=== PATIENT | female | born 1985 | race Caucasian/White ===

== ENCOUNTER 2018-12-08 17:00 | Inpatient (IN) | payer BC ==
[2018-12-08] MEDS: ELECTROLYTE-148 SOLN 1,000 ML IV SCH ×2 (17:30→22:00)
[2018-12-08 18:10] VITALS: BMI 26.1
--- NOTE | 2018-12-08 20:02 | HP ---
Past Medical History - Primary Care Physician PCP:: Fern Collazo - Admission Chief Complaint: 33yo P1 @ 40.2 wks c/o LOF, clear today @ 4pm, and some irregular contructions, no VB, + FM History of Present Illness: 1. Prior c/section 2. NIPT - 46XX 3. TDap 10/01/18 4. GBS neg 5. RNI for immunization PP History Source: Patient, Medical Record Limitations to Obtaining History: No Limitations - Past Medical History Pulmonary: Yes: Other (PPD positive, CXR neg, Quantiferon neg) ...: 3 ...Para: 1 ...Term: 1 (2014 c/section, 9lb) ...: 0 ...Spon : 0 ...Induced : 1 ...Multiple Gestation: 0 ...LMP: 03/02/18 ... Weeks Gestation by Dates: 40.1 ...EDC by Dates: 12/07/18 ...EDC by Sono: 12/06/18 Psych: Yes: Depression () - Past Surgical History Past Surgical History: Yes: Appendectomy, Breast Biopsy, Hx Myomectomy: No Hx Transabdominal Cerclage: No Additional Surgical History: Breast augmentation. Laparoscopy - Smoking History Smoking history: Never smoked Have you smoked in the past 12 months: No - Alcohol/Substance Use Hx Alcohol Use: No History of Substance Use: reports: None - Social History ADL: Independent History of Recent Travel: No Home Medications - Allergies Allergies/Adverse Reactions: Allergies Allergy/AdvReac Type Severity Reaction Status Date / Time No Known Allergies Allergy Verified 12/08/18 17:49 - Home Medications Home Medications: Ambulatory Orders Vits96/Iron Fum/Folic [ Tablet] 1 each PO DAILY 12/08/18 Family Disease History - Family Disease History Family Disease History: CA: Father (lung) Review of Systems - Review of Systems Constitutional: reports: No Symptoms Eyes: reports: No Symptoms HENT: reports: No Symptoms Neck: reports: No Symptoms Cardiovascular: reports: No Symptoms Respiratory: reports: No Symptoms Gastrointestinal: reports: No Symptoms, Other (clear leackage of fluid) Breasts: reports: No Symptoms Reported Musculoskeletal: reports: No Symptoms Integumentary: reports: No Symptoms Neurological: reports: No Symptoms Endocrine: reports: No Symptoms Hematology/Lymphatic: reports: No Symptoms Psychiatric: reports: No Symptoms Physical Exam - Maternity Vital Signs: Vital Signs Temperature 98.2 F 12/08/18 17:30 Pulse Rate 81 12/08/18 19:15 Respiratory Rate 18 12/08/18 19:15 Blood Pressure 95/70 12/08/18 19:15 O2 Sat by Pulse Oximetry (%) Constitutional: Yes: Well Nourished, No Distress, Calm Eyes: Yes: WNL, Conjunctiva Clear, EOM Intact HENT: Yes: WNL, Atraumatic, Normocephalic Neck: Yes: WNL, Supple, Trachea Midline Cardiovascular: Yes: WNL, Regular Rate and Rhythm Lungs: Clear to auscultation Breast(s): Yes: WNL - Abdominal Exam/OB Fundal Height: 40 Number of Fetuses: Single Presentation: Vertex Contractions: Yes Regularity: Regular Intensity: Mild/Mod Monitor Mode: External Heart Rate (range): 140 Heart Rate Location: Midline Category: I Accelerations: Uniform Decelerations: None - Vaginal Exam/OB Vaginal Bleediing: No Speculum Exam: No Dilatation (cm): 1 Effacement (%): 50 Amniotic Membrane Status: Ruptured Nitrazine Test: Positive Amniotic Fluid: Yes: Clear Presentation: Vertex/Position Station: -3 - Physical Exam Musculoskeletal: Yes: WNL Extremities: Yes: WNL Edema: No Integumentary: Yes: WNL Deep Tendon Reflex Grade: Normal +2 ...Motor Strength: WNL Psychiatric: Yes: WNL, Alert - Labs Lab Results: Apos/HBsAgneg/RPR - nr/HIV neg/RNI/ Assessment/Plan 33yo P1 @ 40.1wks with PROM, clear fluid, prior c/section, in early labor Admit to L&D, NPO, IVF, Labs Desires to attempt DEVONTE understands risk of uterine rupture 1% Chooses Epidural for pain management Augment constructions with Pitocin Patient desires to proceed with c/section by 8am if no significant progress of labor MF status reassuring
[2018-12-08] MEDS ORDERED: AMPICILLIN SODIUM 2 GM VIAL IVPB STA (20:15)
[2018-12-08] MEDS ORDERED: AMPICILLIN SODIUM 2 GM VIAL ONE (20:19)
[2018-12-08] MEDS ORDERED: FENTANYL/BUPIVACAINE/NS/PF - PCEA - 50 ML DISP.SYRIN EP ONE (21:12)
[2018-12-08] MEDS ORDERED: NALOXONE HCL 0.4 MG/ML VIAL IVPUSH PRN (22:23)
[2018-12-08] MEDS ORDERED: FENTANYL/BUPIVACAINE/NS/PF - PCEA - 50 ML DISP.SYRIN EP SCH (22:30)
[2018-12-09] MEDS ORDERED: AMPICILLIN SODIUM 1 GM VIAL ONE ×2 (00:07→04:00)
[2018-12-09] MEDS: AMPICILLIN SODIUM 1 GM VIAL IVPB SCH ×3 (00:15→08:15)
[2018-12-09] MEDS ORDERED: NALOXONE HCL 0.4 MG/ML VIAL IVPUSH PRN (01:29)
[2018-12-09] MEDS ORDERED: FENTANYL/BUPIVACAINE/NS/PF - PCEA - 50 ML DISP.SYRIN EP SCH ×2 (01:30)
[2018-12-09] MEDS ORDERED: ELECTROLYTE-148 SOLN 500 ML IV ONE (01:37)
--- NOTE | 2018-12-09 01:46 | PN ---
Progress Note (short form) - Note Progress Note: Called to the floor for low BP. 85/ 45-55 Pat seen and examined. Repeat BP, 85-90/50-55. Pat comfartable with no contraction pain. C/o tiredness and headache. A/P: Hypotension. Stopped epidural. Treated with one dose phenylephrine. Will restart when SBP>95 consistently. Decrease the basal rate to 8 ml/hr.
[2018-12-09] MEDS: ELECTROLYTE-148 SOLN 1,000 ML IV SCH ×2 (02:35→03:55)
[2018-12-09] MEDS ORDERED: FENTANYL/BUPIVACAINE/NS/PF - PCEA - 50 ML DISP.SYRIN EP ONE (05:10)
[2018-12-09] MEDS ORDERED: LIDO 2%/EPI 1:200000 PRESRVFRE (20 ML SDVIAL) ONE (08:17)
[2018-12-09] MEDS ORDERED: OXYTOCIN 20 UNITS in 0.9% NS 40 UNIT/2,000 ML INFUS.BAG IV ONE (08:18)
[2018-12-09] MEDS ORDERED: PHENYLEPHRINE HCL 10 MG/1 ML SINGLE DOSE VIAL ONE (08:21)
[2018-12-09] MEDS ORDERED: CITRIC ACID/SODIUM CITRATE 30 ML UNIT-DOSE CUP PO ONE (08:25)
--- NOTE | 2018-12-09 08:25 | PN ---
Ante-Partal Exam - Subjective Subjective: No complaints. Pt has contractions but does not feel them. Epidural is in place. Vital Signs: Vital Signs Temperature 98.2 F 12/09/18 06:00 Pulse Rate 89 12/09/18 07:30 Respiratory Rate 17 12/09/18 07:30 Blood Pressure 102/69 12/09/18 07:30 O2 Sat by Pulse Oximetry (%) 100 12/09/18 07:30 Bleeding: No Headache: No Visual changes: No Right upper quadrant pain: No Pain (scale 1-10): 0 - Contractions Contractions: Yes Regularity: Irregular Intensity: Unaware Monitor Mode: External - Exam during Labor Heart Rate: 120 Variability: Moderate Heart Rate Location: Midline Category: I Monitor Accelerations: Present Monitor Decelerations: None Exam: Vaginal Dilatation (cm): 3 Effacement (%): 80 Amniotic Membrane Status: Leaking Nitrazine Test: Positive Amniotic Fluid: Clear Presentation: Vertex Station: -2 - Intrapartum Hemorrhage Risk Medium Risk Factors: None High Risk Factors: None Risk Score: 0 Risk Level: Low Risk - Assessment/Plan Assessment/Plan: Pt is in latent labor. The fetus with Category I tracing. We discussed management and delivery plans. The pt requested to proceed with a repeat C/S. We discussed the risks and benefits of C/S at length, including but not limited to scarring, pain, bleeding, infection, injury to underlying organs and structures, need for additional surgery to repair/treat any problems or complications, complications/injuries, etc. The pt verbalized her understanding and requested to proceed with surgery. The pt is aware that all surgeries have risks and no guarantees can be provided.
[2018-12-09 08:48] LABS: POC NITRAZINE POS
[2018-12-09] MEDS ORDERED: MIDAZOLAM HCL 2 MG/2 ML SINGLE DOSE VIAL ONE (09:12)
[2018-12-09] MEDS ORDERED: ceFAZolin SODIUM 1 GM VIAL ONE ×2 (09:50)
[2018-12-09] MEDS ORDERED: WITCH HAZEL 50% (TUCKS) 40 PAD/JAR PAD TP PRN (09:56)
[2018-12-09] MEDS ORDERED: IBUPROFEN 600 MG TABLET (FP) PO PRN (09:56)
[2018-12-09] MEDS ORDERED: METHYLERGONOVINE MALEATE 0.2 MG/1 ML AMP IM PRN (09:56)
[2018-12-09] MEDS ORDERED: oxyCODONE HCL 5 MG TABLET PO PRN (09:56)
[2018-12-09] MEDS ORDERED: BENZOCAINE 20% 57 GM BOTTLE TP PRN (09:56)
[2018-12-09] MEDS ORDERED: SENNOSIDES/DOCUSATE COMBO (SENNA PLUS) TABLET (UD) PO PRN (09:56)
[2018-12-09] MEDS ORDERED: PRENATAL VITAMINS W/ FOLIC ACID TABLET (FP) PO SCH (10:00)
--- NOTE | 2018-12-09 10:04 | OP ---
Operative Note - Note: Operative Date: 12/09/18 Pre-Operative Diagnosis: Post term at EGA 40w 3d. Prior C/S. Failed Operation: Repeat LT C/S Findings: Live baby girl in vtx presentation. No mecoinium. 9-9. Wt 8lb 12 oz. Normal ut/tubes/ovaries Post-Operative Diagnosis: Same as Pre-op Surgeon: Emile Rubalcava Loan Examiner: Fern Collazo Anesthesiologist/WEB CONTENT PRODUCER: Jeff Daugherty Anesthesia: Epidural Specimens Removed: Placenta Estimated Blood Loss (mls): 500 Drains & Tubes with Location: Barry cath Drains, Volume Out (mls): 200 Blood Volume Replaced (mls): 0 Fluid Volume Replaced (mls): 2,000 Operative Report Dictated: Yes
[2018-12-09] MEDS ORDERED: OXYTOCIN 20 UNITS in 0.9% NS 20 UNIT/1,000 ML INFUS.BAG IV ONE (11:14)
[2018-12-09] MEDS ORDERED: IBUPROFEN 800 MG/8 ML IJ IVPB ONE (11:15)
[2018-12-09] MEDS: IBUPROFEN 800 MG/8 ML IJ IVPB PRN ×2 (11:35→23:47)
[2018-12-09] MEDS: OXYTOCIN 20 UNITS in 0.9% NS 20 UNIT/1,000 ML INFUS.BAG IV SCH ×2 (11:39→21:01)
[2018-12-09] MEDS ORDERED: ENOXAPARIN NA (PORCINE) 40 MG/0.4 ML DISP.SYRIN SQ SCH (15:30)
[2018-12-09] MEDS ORDERED: ONDANSETRON 4 MG/2 ML VIAL IVPUSH PRN (17:09)
--- NOTE | 2018-12-09 21:31 | OP ---
DATE OF OPERATION: 12/09/2018 PREOPERATIVE DIAGNOSIS: Post-term at estimated gestational age of 40 weeks and 3 days, previous section, failed trial of labor after section. POSTOPERATIVE DIAGNOSIS: Post-term at estimated gestational age of 40 weeks and 3 days, previous section, failed trial of labor after section. PROCEDURE: Repeat low transverse section. SURGEON: Emile Rubalcava MD TOPOGRAPHIC COMPUTATOR: Fern Collazo MD ANESTHESIOLOGIST: Jeff Daugherty MD ANESTHESIA: Epidural. COMPLICATIONS: None. PATHOLOGY: Placenta. ESTIMATED BLOOD LOSS: 500 mL. URINE OUTPUT: Clear urine 200 mL at the end of the procedure. INTRAVENOUS FLUIDS: 2000 mL. FINDINGS: Live baby girl in vertex presentation. No meconium noted in amniotic fluids. A nuchal cord was wrapped around once and was released without difficulties. scores were 9 and 9. Baby's weight was 8 pounds 12 ounces. Normal uterus, fallopian tubes, and ovaries were noted. DESCRIPTION OF PROCEDURE: The patient was met preoperatively. Risks, benefits, and alternatives of surgery were discussed in details. All questions were answered. The patient requested to proceed with the surgery. The patient was then brought to the OR with the IV running. She was placed on the surgical table in the supine position. The level of epidural anesthesia was found to be adequate. The patient was then prepped and draped in the usual sterile fashion. A Barry catheter was left to drain to gravity. A Pfannenstiel skin incision was made along the prior scar. The incision was taken down to the level of fascia. The fascia was incised in the midline. The incision was extended bilaterally using Shah scissors. The fascia was then dissected away from the rectus muscles superiorly and inferiorly using sharp dissection. The rectus muscles were in the midline. The peritoneum was identified and entered sharply. The peritoneal incision was extended superiorly and inferiorly. The bladder peritoneum was dissected away from the lower uterine segment using sharp dissection. The bladder was reflected downwards with the Belfour retractor. The lower uterine segment was incised transversely with a knife. The incision was extended bilaterally using bandage scissors. The baby was delivered from vertex presentation without complications. The baby was crying spontaneously. The umbilical cord was clamped and cut. The baby was handed to the awaiting spot cleaner. The placenta was then delivered manually and without complications. The uterus was cleared of all clots and debris using moist laps. The uterine incision was repaired using a 0 Biosyn suture with a running locking stitch. Good hemostasis was noted. The uterine incision was then imbricated using a secondary layer of closure with a 0 Biosyn suture. Once again, good hemostasis was noted. The bladder peritoneum was then approximated using a 0 Biosyn suture with good hemostasis and approximation. The operative site was irrigated using copious amounts of normal saline. Once the saline was aspirated, good hemostasis was confirmed. The parietal peritoneum was approximated using a 2-0 chromic suture. The rectus muscles were approximated in the midline using several interrupted 2-0 chromic sutures. The fascia was closed using a 0 Vicryl suture with a running stitch. Good hemostasis was noted. The subcutaneous adipose tissues and Bang fascia were approximated using several interrupted 0 Vicryl sutures. The skin was closed using a subcuticular stitch with a 4-0 Biosyn suture. Sponge, lap, and instrument counts were correct. The patient tolerated the procedure well. She was transferred to recovery room in stable condition and awake. Christopher [id number]
[2018-12-10] MEDS: PROMETHAZINE HCL 25 MG/1 ML VIAL IVPUSH PRN ×2 (00:56→06:40)
[2018-12-10] MEDS: OXYTOCIN 20 UNITS in 0.9% NS 20 UNIT/1,000 ML INFUS.BAG IV SCH (06:08)
[2018-12-10] MEDS: ACETAMINOPHEN 325 MG TABLET (FP) PO PRN ×3 (06:39→17:34)
[2018-12-10] MEDS: SIMETHICONE 80 MG TAB.CHEW (FP) PO PRN ×3 (06:39→17:37)
[2018-12-10] MEDS: IBUPROFEN 600 MG TABLET (FP) PO PRN ×3 (06:40→17:37)
[2018-12-10 07:14] LABS: BASO % 0.4 % (0-2.0); EOS % 0.4 % (0-4.5); HEMATOCRIT 27.7 % (32.4-45.2); HEMOGLOBIN 9.2 GM/dL (10.7-15.3); LYMPH % 15.8 % (8-40); MCH 27.7 pg (25.7-33.7); MONO % 8.2 % (3.8-10.2); NEUT % 75.2 % (42.8-82.8); RDW 16.3 % (11.6-15.6); WHITE BLOOD COUNT 7.9 K/mm3 (4.0-10.0)
[2018-12-10 08:08] LABS: PLATELET COUNT 108 K/MM3 (134-434)
--- NOTE | 2018-12-10 08:33 | PN ---
Post Progress Note - Subjective Subjective: POD#1 Patient without acute complaints. Reports tolerating oral intake without nausea or vomiting. Ambulating without dizziness. Denies fevers or chills. Pain well controlled with oral pain medication. Pumping/breast feeding without issue. No flatus, no BM Post Day: 1 Type of Delivery: Repeat C/S Vital Signs: Vital Signs Temperature 97.6 F 12/10/18 08:07 Pulse Rate 66 12/10/18 08:07 Respiratory Rate 18 12/10/18 08:07 Blood Pressure 89/64 L 12/10/18 08:07 O2 Sat by Pulse Oximetry (%) 99 12/09/18 22:00 Breast Exam: Yes: Soft Uterus: Yes: Fundus Firm, Fundus below umbilicus, Non-tender Incision: Yes: Dressing dry and intact Abdomen/GI: Yes: Abdomen soft Lochia: Yes: Rubra Lochia, amount: Small Extremities: Yes: Calves non-tender Perineum: Yes: Intact Activity: Other (still in bed) - Labs Labs: CBC WBC 7.9 K/mm3 (4.0-10.0) 12/10/18 06:52 RBC 3.30 M/mm3 (3.60-5.2) L 12/10/18 06:52 Hgb 9.2 GM/dL (10.7-15.3) L 12/10/18 06:52 Hct 27.7 % (32.4-45.2) L D 12/10/18 06:52 MCV 84.0 fl (80-96) 12/10/18 06:52 MCH 27.7 pg (25.7-33.7) 12/10/18 06:52 MCHC 33.0 g/dl (32.0-36.0) 12/10/18 06:52 RDW 16.3 % (11.6-15.6) H 12/10/18 06:52 Plt Count 108 K/MM3 (134-434) L D 12/10/18 06:52 MPV 9.0 fl (7.5-11.1) 12/10/18 06:52 Absolute Neuts (auto) 6.0 K/mm3 (1.5-8.0) 12/10/18 06:52 Neutrophils % 75.2 % (42.8-82.8) 12/10/18 06:52 Lymphocytes % 15.8 % (8-40) 12/10/18 06:52 Monocytes % 8.2 % (3.8-10.2) 12/10/18 06:52 Eosinophils % 0.4 % (0-4.5) 12/10/18 06:52 Basophils % 0.4 % (0-2.0) 12/10/18 06:52 Nucleated RBC % 0 % (0-0) 12/10/18 06:52 Assessment/Plan 33yo P2 s/p repeat LT C/S, doing well stable, afebrile. The pt is asymptomatic for s/sxs of anemia. care instructions reviewed. Continue routine postop care. Ambulation encouraged.
[2018-12-10] MEDS: ENOXAPARIN NA (PORCINE) 40 MG/0.4 ML DISP.SYRIN SQ SCH (09:38)
[2018-12-10] MEDS: PRENATAL VITAMINS W/ FOLIC ACID TABLET (FP) PO SCH (09:38)
[2018-12-10] MEDS ORDERED: BISACODYL 10 MG SUPP.RECT RC PRN (09:57)
--- NOTE | 2018-12-10 10:43 | PN ---
Progress Note (short form) - Note Progress Note: Anesthesia pain Pt seen and exmained S:Alert and awake, comfortable O: Vital Signs Temperature 97.6 F 12/10/18 08:07 Pulse Rate 66 12/10/18 08:07 Respiratory Rate 18 12/10/18 08:07 Blood Pressure 89/64 L 12/10/18 08:07 O2 Sat by Pulse Oximetry (%) 99 12/09/18 22:00 CBC, BMP 12/10/18 06:52 A/P: s/p c section Doing well post op Continue current care Jeff Daugherty MD
[2018-12-10] MEDS ORDERED: diphenhydrAMINE HCL 12.5 MG/5 ML UNIT-DOSE CUPS PO PRN (14:45)
[2018-12-10] MEDS: oxyCODONE HCL 5 MG TABLET PO PRN (20:27)
[2018-12-11] MEDS: SIMETHICONE 80 MG TAB.CHEW (FP) PO PRN ×3 (01:06→21:13)
[2018-12-11] MEDS: oxyCODONE HCL 5 MG TABLET PO PRN ×2 (01:07→22:13)
[2018-12-11] MEDS: IBUPROFEN 600 MG TABLET (FP) PO PRN ×3 (01:08→15:56)
[2018-12-11] MEDS: ENOXAPARIN NA (PORCINE) 40 MG/0.4 ML DISP.SYRIN SQ SCH (09:04)
[2018-12-11] MEDS: PRENATAL VITAMINS W/ FOLIC ACID TABLET (FP) PO SCH (09:04)
[2018-12-11] MEDS: ACETAMINOPHEN 325 MG TABLET (FP) PO PRN ×3 (09:05→22:13)
--- NOTE | 2018-12-11 09:10 | PN ---
Post Progress Note - Subjective Subjective: Patient without acute complaints. Reports tolerating oral intake without nausea or vomiting. Ambulating without dizziness. Denies fevers or chills. Pain well controlled with oral pain medication. without difficulty. Passing flatus. Post Day: 1 Type of Delivery: Repeat C/S Vital Signs: Vital Signs Temperature 97.6 F 12/10/18 20:56 Pulse Rate 71 12/10/18 20:56 Respiratory Rate 20 12/10/18 20:56 Blood Pressure 105/68 12/10/18 20:56 O2 Sat by Pulse Oximetry (%) 99 12/09/18 22:00 Breast Exam: Yes: Soft Uterus: Yes: Fundus Firm, Fundus below umbilicus Incision: Yes: Sutures intact. No: Redness, Oozing Abdomen/GI: Yes: Abdomen soft, Tender (mild incisional ), Passing flatus, Tolerating PO. No: Abdominal Distention Lochia: Yes: Rubra Lochia, amount: Small Extremities: Yes: Calves non-tender, Edema (trace) Activity: Ambulating - Labs Labs: CBC WBC 7.9 K/mm3 (4.0-10.0) 12/10/18 06:52 RBC 3.30 M/mm3 (3.60-5.2) L 12/10/18 06:52 Hgb 9.2 GM/dL (10.7-15.3) L 12/10/18 06:52 Hct 27.7 % (32.4-45.2) L D 12/10/18 06:52 MCV 84.0 fl (80-96) 12/10/18 06:52 MCH 27.7 pg (25.7-33.7) 12/10/18 06:52 MCHC 33.0 g/dl (32.0-36.0) 12/10/18 06:52 RDW 16.3 % (11.6-15.6) H 12/10/18 06:52 Plt Count 108 K/MM3 (134-434) L D 12/10/18 06:52 MPV 9.0 fl (7.5-11.1) 12/10/18 06:52 Absolute Neuts (auto) 6.0 K/mm3 (1.5-8.0) 12/10/18 06:52 Neutrophils % 75.2 % (42.8-82.8) 12/10/18 06:52 Lymphocytes % 15.8 % (8-40) 12/10/18 06:52 Monocytes % 8.2 % (3.8-10.2) 12/10/18 06:52 Eosinophils % 0.4 % (0-4.5) 12/10/18 06:52 Basophils % 0.4 % (0-2.0) 12/10/18 06:52 Nucleated RBC % 0 % (0-0) 12/10/18 06:52 Assessment/Plan 33 yo POD # 2 s/p CD, afebrile, vital signs stable, mild asymptomatic anemia 1. Continue routine postoperative care. 2. Encourage ambulation and incentive spirometer use 3. Continue oral pain medication 4. Anticipate discharge home postoperative day #3 or #4
[2018-12-11] MEDS ORDERED: DIPHENHYDRAMINE HCL 25 MG/10 ML CUP PO PRN (13:37)
--- NOTE | 2018-12-11 19:18 | DS ---
Physical Exam-CASSANDRA CONSULTANT Vital Signs: Vital Signs Temperature 98.3 F 12/11/18 10:00 Pulse Rate 69 12/11/18 10:00 Respiratory Rate 20 12/11/18 10:00 Blood Pressure 100/56 L 12/11/18 10:00 O2 Sat by Pulse Oximetry (%) 99 12/09/18 22:00 Constitutional: Yes: Well Nourished, No Distress, Calm Eyes: Yes: WNL, Conjunctiva Clear HENT: Yes: WNL, Atraumatic, Normocephalic Neck: Yes: WNL, Supple, Trachea Midline Cardiovascular: Yes: WNL, Regular Rate and Rhythm Respiratory: Yes: WNL, Regular, CTA Bilaterally Gastrointestinal: Yes: WNL, Normal Bowel Sounds, Soft ...Rectal Exam: Yes: Deferred Renal/: Yes: WNL Internal Exam Deferred: Yes ....Post : Yes: Uterus firm, Uterus non-tender, Slight lochia rubra Breast(s): Yes: WNL Musculoskeletal: Yes: WNL Extremities: Yes: WNL Edema: Yes Edema: LLE: Trace, RLE: Trace Integumentary: Yes: WNL Wound/Incision: Yes: Clean/Dry, Well Approximated, Sutures Intact, Steri Strips , Open to air Neurological: Yes: WNL, Alert, Oriented ...Motor Strength: WNL Psychiatric: Yes: WNL, Alert, Oriented Labs: CBC, BMP 12/10/18 06:52 Delivery - Delivery Section: Repeat, Low Flap Transverse Type of Anesthesia: Epidural Episiotomy/Laceration: None EBL (cc): 500 Delivery, Single - Stages of Labor Date 1st Stage Initiatied: 12/08/18 Time 1st Stage Initiated: 17:00 Date of Delivery: 12/09/18 Time of Delivery: 09:02 Time Placenta Delivered: 09:03 Placenta: Yes: Manual Removal, Normal Configuration - Condition of Curriculum Supervisor/Assembler Engine Present: Yes Name: Gardenia Mckee Gender: Female Weight: 3.969 kg Position: OP Total Hours ROM (Hrs/Mins): 0/2 - 1 Minute Total Score: 9 5 Minutes Total Score: 9 - [place] Feeding Plan Initial Plan: Elected not to breastfeed exclusively throughout hospitalization Benefits of Exclusively reinforced: Yes Discharge Summary Reason For Visit: LABOR Failed Procedures: Principal: Repeat LT C/S Hospital Course: Normal postop and recovery Condition: Good - Instructions Diet, Activity, Other Instructions: Physical activity Resume your normal everyday activity as tolerated no heavy lifting or exercise until seen by your surgeon. You may walk unlimited maría of and climb stairs. You may resume driving the car when you feel safe and comfortable behind the wheel. No sexual activity as instructed. Wound care If you have a bandage, leave it on, and keep dry for 48-72 hours. After that time discard the outer bandage. If they are tapes on the skin under the out of bandage leave them in place. They will peel off in the next 7 to 10 days. Do Not Peel them off. You may shower the day after surgery. If there are tapes present on the skin, you may shower over them. Diet There are no dietary restrictions. Eat healthy, high-fiber foods. Drink 6 to 8 glasses of liquid each day. This will assist in keeping your bowels are regular. Pain management You may take Tylenol or acetaminophen or Ibuprofen (for example, Motrin, Advil etc.) from my pain prescription medication is ordered should be taken as prescribed for moderate to severe pain. Call MD for any of the following: Severe pain not relieved by medication Fever of 101 or higher Excessive bleeding or drainage on dressing Inability to urinate Referrals: Emile Rubalcava MD [Staff Physician] - Disposition: HOME - Home Medications Comprehensive Discharge Medication List: Ambulatory Orders Vits96/Iron Fum/Folic [ Tablet] 1 each PO DAILY 12/08/18
[2018-12-12] MEDS: IBUPROFEN 600 MG TABLET (FP) PO PRN ×3 (02:56→15:41)
[2018-12-12] MEDS: SIMETHICONE 80 MG TAB.CHEW (FP) PO PRN ×2 (02:56→15:41)
[2018-12-12] MEDS: oxyCODONE HCL 5 MG TABLET PO PRN ×3 (02:57→15:43)
[2018-12-12 07:06] LABS: BASO % 0.7 % (0-2.0); EOS % 0.9 % (0-4.5); HEMOGLOBIN 8.9 GM/dL (10.7-15.3); LYMPH % 28.3 % (8-40); MCH 27.5 pg (25.7-33.7); MEAN CELL VOLUME 83.2 fl (80-96); MEAN PLT VOLUME 9.8 fl (7.5-11.1); MONO % 6.5 % (3.8-10.2); NEUT % 63.6 % (42.8-82.8); PLATELET COUNT 116 K/MM3 (134-434); RBC 3.24 M/mm3 (3.60-5.2); RDW 15.6 % (11.6-15.6); WHITE BLOOD COUNT 5.1 K/mm3 (4.0-10.0)
--- NOTE | 2018-12-12 07:30 | PN ---
Progress Note (short form) - Note Progress Note: pod 3 doing well, passing gas abdomen soft, no distension, no cva incision dry, clean no calf tenderness no excess vaginal bleeding plan d/c home, follow up office 1 week
[2018-12-12] MEDS: PRENATAL VITAMINS W/ FOLIC ACID TABLET (FP) PO SCH (10:00)
[2018-12-12] MEDS: ENOXAPARIN NA (PORCINE) 40 MG/0.4 ML DISP.SYRIN SQ SCH (10:00)
--- NOTE | 2018-12-12 14:53 | PATH ---
Surgical Pathology Report Patient Name: LEONCIO MOTLEY [facility]. Rec. #: [id number] /Age/Gender: 1985 (Age: 33) / F Account: [id number] Location: [facility] OBS/PRODUCT MANAGER Taken: 12/09/2018 Received: 12/10/2018 Reported: 12/12/2018 Physicians: Fern Collazo M.D. Specimen(s) Received PLACENTA Clinical History 40.2 weeks, x 1, appendectomy, laparoscopy Final Diagnosis PLACENTA: THIRD TRIMESTER PLACENTA WITH ACUTE CHORIOAMNIONITIS. TRIVASCULAR CORD. Electronically Signed Usha Ansari M.D. Gross Description The specimen is received fresh labeled placenta and is a 585 gram, 19 x19 x 3.1cm. placenta with attached membranes and umbilical cord. The attached membranes are glistening, translucent, and insert marginally. The umbilical cord measures 12 cm. in length and averages 1.2 cm. in diameter. The cord inserts centrally, 4 centimeter to the nearest margin. No true knots or strictures are identified. Cut surface of the umbilical cord reveals 3 vessels. Sectioning reveals red-brown, spongy parenchyma. No lesions are identified. Pigment Supplier sections are submitted in three cassettes as follows: 1- membrane rolls and umbilical cord; 2-3- full thickness sections of placenta KWS/12/10/2018 sulki/12/10/2018
[2018-12-12] MEDS: ACETAMINOPHEN 325 MG TABLET (FP) PO PRN (15:41)
[2018-12-12 19:35] VITALS: BP 103/67; PULSE 73; TEMP 98
== END 2018-12-12 17:45 | disposition home or self-care (01) | DRG 788 ==
LOC: JDEL 17:00 → JLDR 17:20 → J3W 12-09 11:30
PROVIDERS: ADMIT Obstetrics & Gynecology; ATTEND Obstetrics & Gynecology
PROC: 10D00Z1 Extraction of Products of Conception, Low, Open Approach (ICD-10-PCS; principal; 2018-12-09)
DX: O48.0 Post-term pregnancy (principal); O66.41 Failed attempted vaginal birth after previous cesarean delivery; O69.81X0 Labor and delivery complicated by cord around neck, without compression, not applicable or unspecified; O34.211 Maternal care for low transverse scar from previous cesarean delivery; Z3A.40 40 weeks gestation of pregnancy; Z37.0 Single live birth
CPT/HCPCS: 36415; 36600; 80048; 82803; 83986-QW; 85025; 85610; 85730; 86593; 86850; 86900; 86901; 88307-TC

== ENCOUNTER 2020-12-12 14:09 | Inpatient (IN) | payer BC ==
[2020-12-12 15:27] VITALS: BMI 25.9
[2020-12-12 15:29] LABS: BASO % 0.6 % (0-2.0); EOS % 0.4 % (0-4.5); HEMATOCRIT 31.9 % (32.4-45.2); HEMOGLOBIN 10.8 GM/dL (10.7-15.3); MCH 26.9 pg (25.7-33.7); MCHC 33.9 g/dl (32.0-36.0); MEAN CELL VOLUME 79.3 fl (80-96); MEAN PLT VOLUME 9.2 fl (7.5-11.1); MONO % 6.2 % (3.8-10.2); NEUT % 73.8 % (42.8-82.8); PLATELET COUNT 132 10^3/uL (134-434); RBC 4.02 M/mm3 (3.60-5.2); RDW 15.2 % (11.6-15.6); WHITE BLOOD COUNT 6.8 K/mm3 (4.0-10.0)
[2020-12-12 15:37] LABS: INR 0.89 (0.83-1.09); PROTHROMBIN TIME (PATIENT) 10.8 SEC (9.7-13.0)
[2020-12-12 15:39] LABS: ACTIVATED PTT 26.3 SECONDS (25.2-36.5)
[2020-12-12 15:49] LABS: BLOOD UREA NITROGEN 9.9 mg/dL (7-18); CALCIUM 8.1 mg/dL (8.5-10.1)
[2020-12-12 15:53] LABS: CREATININE 0.5 mg/dL (0.55-1.3)
[2020-12-12] MEDS ORDERED: ONDANSETRON 4 MG/2 ML VIAL IVPUSH PRN (16:09)
[2020-12-12] MEDS ORDERED: morphine SULFATE/PF 0.5 MG/ML (2cc Syringe - QUVA) SPIN ONE (16:09)
[2020-12-12] MEDS ORDERED: ACETAMINOPHEN 1000 MG/100 ML VIAL (NON FORMULARY) IVPB ONE (16:10)
[2020-12-12] MEDS ORDERED: ELECTROLYTE-148 SOLN 500 ML IV ONE (16:18)
[2020-12-12] MEDS ORDERED: CITRIC ACID/SODIUM CITRATE 30 ML UNIT-DOSE CUP PO ONE (16:18)
[2020-12-12] MEDS ORDERED: ELECTROLYTE-148 SOLN 1,000 ML IV SCH (16:30)
[2020-12-12] MEDS ORDERED: morphine SULFATE/PF 0.5 MG/ML (2cc Syringe - QUVA) ONE (16:39)
[2020-12-12] MEDS ORDERED: ceFAZolin SODIUM 1 GM VIAL ONE (16:45)
[2020-12-12] MEDS ORDERED: ONDANSETRON 4 MG/2 ML VIAL ONE (16:45)
[2020-12-12] MEDS ORDERED: KETOROLAC TROMETHAMINE 30 MG/1 ML VIAL ONE (16:45)
[2020-12-12] MEDS ORDERED: OXYTOCIN 10 UNITS/ML VIAL ONE ×3 (17:08→17:24)
[2020-12-12 18:03] LABS: CORD BASE EXCESS -1.9 mmol/L (0-2); CORD HCO3 23.8 mmHg (20-29); CORD pH 7.351 (7.14-7.44)
[2020-12-12 18:05] LABS: CORD BASE EXCESS -1.9 mmol/L (0-2); CORD HCO3 25.2 mmHg (20-29); CORD PCO2 51.1 mmHg (30-78); CORD pH 7.31 (7.14-7.44)
[2020-12-12] MEDS ORDERED: BENZOCAINE 28 GM HEMORRHOIDAL OINTMENT TP PRN (18:10)
[2020-12-12] MEDS ORDERED: WITCH HAZEL 50% (TUCKS) 40 PAD/JAR PAD TP PRN (18:10)
[2020-12-12] MEDS ORDERED: BENZOCAINE 20% 57 GM BOTTLE TP PRN (18:10)
[2020-12-12] MEDS ORDERED: METHYLERGONOVINE MALEATE 0.2 MG/1 ML AMP IM PRN (18:10)
[2020-12-12] MEDS ORDERED: IBUPROFEN 800 MG/8 ML IJ IVPB PRN (18:10)
[2020-12-12] MEDS ORDERED: ACETAMINOPHEN 325 MG TABLET (FP) PO PRN (18:10)
[2020-12-12] MEDS ORDERED: OXYTOCIN 20 UNITS in 0.9% NS 20 UNIT/1,000 ML INFUS.BAG IV SCH (18:15)
[2020-12-12] MEDS ORDERED: ACETAMINOPHEN INJECTION 100 ML IVPB ONE (18:15)
[2020-12-13] MEDS ORDERED: MELATONIN 1 MG TABLET PO PRN (00:27)
[2020-12-13 08:53] LABS: BASO % 0.4 % (0-2.0); EOS % 0.2 % (0-4.5); HEMATOCRIT 27.2 % (32.4-45.2); HEMOGLOBIN 9.3 GM/dL (10.7-15.3); LYMPH % 15.1 % (8-40); MCH 27.4 pg (25.7-33.7); MEAN CELL VOLUME 80.4 fl (80-96); MEAN PLT VOLUME 9.9 fl (7.5-11.1); MONO % 6.8 % (3.8-10.2); NEUT % 77.5 % (42.8-82.8); PLATELET COUNT 131 10^3/uL (134-434); RBC 3.39 M/mm3 (3.60-5.2); RDW 14.8 % (11.6-15.6); WHITE BLOOD COUNT 6.7 K/mm3 (4.0-10.0)
[2020-12-13] MEDS: PRENATAL VITAMINS W/ FOLIC ACID TABLET (FP) PO SCH (10:33)
[2020-12-13] MEDS: ENOXAPARIN NA (PORCINE) 40 MG/0.4 ML DISP.SYRIN SQ SCH (10:33)
[2020-12-13] MEDS: SIMETHICONE 80 MG TAB.CHEW (FP) PO PRN ×2 (15:47→19:15)
[2020-12-13] MEDS ORDERED: BISACODYL 10 MG SUPP.RECT RC PRN (18:10)
[2020-12-13] MEDS: IBUPROFEN 600 MG TABLET (FP) PO PRN (18:26)
[2020-12-13] MEDS: oxyCODONE HCL 5 MG TABLET PO PRN (19:15)
[2020-12-13] MEDS: diphenhydrAMINE HCL 25 MG CAPSULE (FP) PO PRN (22:14)
[2020-12-14] MEDS: SENNOSIDES/DOCUSATE COMBO (SENNA PLUS) TABLET (UD) PO PRN ×2 (03:00→22:16)
[2020-12-14] MEDS: SIMETHICONE 80 MG TAB.CHEW (FP) PO PRN ×3 (03:36→22:16)
[2020-12-14] MEDS: IBUPROFEN 600 MG TABLET (FP) PO PRN ×3 (03:37→22:15)
[2020-12-14] MEDS: oxyCODONE HCL 5 MG TABLET PO PRN ×3 (03:38→22:16)
[2020-12-14] MEDS: ENOXAPARIN NA (PORCINE) 40 MG/0.4 ML DISP.SYRIN SQ SCH (11:39)
[2020-12-14] MEDS: PRENATAL VITAMINS W/ FOLIC ACID TABLET (FP) PO SCH (11:39)
[2020-12-14] MEDS: diphenhydrAMINE HCL 25 MG CAPSULE (FP) PO PRN (22:15)
[2020-12-15] MEDS: SIMETHICONE 80 MG TAB.CHEW (FP) PO PRN (08:40)
[2020-12-15] MEDS: IBUPROFEN 600 MG TABLET (FP) PO PRN ×2 (08:40→12:28)
[2020-12-15] MEDS: ENOXAPARIN NA (PORCINE) 40 MG/0.4 ML DISP.SYRIN SQ SCH (09:55)
[2020-12-15] MEDS: PRENATAL VITAMINS W/ FOLIC ACID TABLET (FP) PO SCH (09:55)
[2020-12-15 10:00] LABS: BASO % 0.6 % (0-2.0); EOS % 0.8 % (0-4.5); HEMATOCRIT 27.6 % (32.4-45.2); HEMOGLOBIN 9.2 GM/dL (10.7-15.3); LYMPH % 19.1 % (8-40); MCHC 33.4 g/dl (32.0-36.0); MEAN CELL VOLUME 80.9 fl (80-96); MEAN PLT VOLUME 9.8 fl (7.5-11.1); MONO % 6.1 % (3.8-10.2); NEUT % 73.4 % (42.8-82.8); PLATELET COUNT 137 10^3/uL (134-434); RBC 3.41 M/mm3 (3.60-5.2); WHITE BLOOD COUNT 5.9 K/mm3 (4.0-10.0)
[2020-12-15 10:51] VITALS: BP 100/64; PULSE 72; TEMP 98.6
== END 2020-12-15 13:55 | disposition home or self-care (01) | DRG 788 ==
LOC: JLDR 14:09 → J3W 19:40
PROVIDERS: ADMIT Obstetrics & Gynecology; ATTEND Obstetrics & Gynecology
PROC: 10D00Z1 Extraction of Products of Conception, Low, Open Approach (ICD-10-PCS; principal; 2020-12-12)
DX: O34.211 Maternal care for low transverse scar from previous cesarean delivery (principal); O90.81 Anemia of the puerperium; D64.9 Anemia, unspecified; Z3A.39 39 weeks gestation of pregnancy; Z37.0 Single live birth
CPT/HCPCS: 36415; 36600; 80048; 82803; 85025; 85610; 85730; 86780; 86850; 86900; 86901; C9803; J0131; U0003; U0005